=== PATIENT | female | born 1955 | race Caucasian/White ===

== ENCOUNTER 2024-10-13 08:15 | Outpatient (RCR) | payer MEDICARE, BC, SELFPAY | END 2024-10-13 14:17 | disposition home or self-care (01) | PROVIDERS: PCP Family Medicine; Visit Provider Family Medicine | DX: S56.811D Strain of other muscles, fascia and tendons at forearm level, right arm, subsequent encounter (principal); M79.631 Pain in right forearm; M25.521 Pain in right elbow; M25.512 Pain in left shoulder; M62.81 Muscle weakness (generalized); M25.612 Stiffness of left shoulder, not elsewhere classified; Z74.09 Other reduced mobility; Z51.89 Encounter for other specified aftercare | CPT/HCPCS: 97033; 97035; 97110; 97140; 97165; 97535; X5282 ==